=== PATIENT | male | born 1955 | race Caucasian/White ===

== ENCOUNTER 2020-06-02 11:51 | Emergency (ER) | payer OTHER | END 2020-06-02 12:18 | disposition home or self-care (01) | LOC: JVIRT 11:51 | DX: U07.1 COVID-19 (principal) | CPT/HCPCS: C9803; Q3014-GT; U0003 ==

== ENCOUNTER 2020-06-26 11:36 | Emergency (ER) | payer OTHER | END 2020-06-26 12:01 | disposition home or self-care (01) | LOC: JVIRT 11:36 | DX: Z11.59 Encounter for screening for other viral diseases (principal) | CPT/HCPCS: C9803; G2012-GT; Q3014-GT; U0003 ==